=== PATIENT | female | born 1980 | race Hispanic/Latino ===

== ENCOUNTER 2017-10-24 07:17 | Emergency (ER) | payer MEDICAID ==
[2017-10-24 07:20] VITALS: O2SAT 100
[2017-10-24 07:52] VITALS: RESP 16; TEMP 98.1
--- NOTE | 2017-10-24 08:02 | C.PDOC ---
History Of Present Illness 36 year old female patient presents to the ER with c/o lower abdominal cramping associated with normal period bleeding. Patient's LMP 7/6 and ; patient is currently . Patient reports she was seen by OBGYN who performed a transvaginal US which showed a gestational sac, fibroid and ovarian cyst; location unknown. Patient notes she had cramps and spotting prior to today. Patient denies fever, chills, diarrhea, nausea, vomiting and back pain or urinary symptoms. Time Seen by Provider: 10/24/17 07:36 Chief Complaint (Nursing): Abdominal Pain History Per: Patient History/Exam Limitations: no limitations Onset/Duration Of Symptoms: Hrs Current Symptoms Are (Timing): Still Present Past Medical History Reviewed: Historical Data, Nursing Documentation, Vital Signs Vital Signs: Last Vital Signs Temp 98.1 F 10/24/17 07:51 Pulse 72 10/24/17 09:43 Resp 16 10/24/17 09:43 BP 104/62 10/24/17 09:43 Pulse Ox 100 10/25/17 10:04 Surgical History: Tonsillectomy - [facility] Procedures INJECT/INFUSE NEC (02/06/14) Family History: States: Diabetes - Social History Hx Tobacco Use: No Hx Alcohol Use: No Hx Substance Use: No - Immunization History Hx Tetanus Toxoid Vaccination: No Hx Influenza Vaccination: No Hx Pneumococcal Vaccination: No Review Of Systems Constitutional: Negative for: Fever, Chills Gastrointestinal: Positive for: Abdominal Pain (low). Negative for: Nausea, Vomiting, Diarrhea Genitourinary: Positive for: Vaginal Bleeding. Negative for: Dysuria, Frequency Musculoskeletal: Negative for: Back Pain Physical Exam - Physical Exam Appears: Non-toxic, No Acute Distress Skin: Warm, Dry Head: Atraumatic, Normacephalic Eye(s): bilateral: PERRL, EOMI Oral Mucosa: Moist Neck: Supple Chest: No Tenderness Cardiovascular: Rhythm Regular, No Murmur Respiratory: Normal Breath Sounds, No Rales, No Rhonchi, No Wheezing Gastrointestinal/Abdominal: Bowel Sounds, Soft, Tenderness (mild tenderness on lower abdomen), No Distention, No Guarding, No Rebound Back: No CVA Tenderness Extremity: No Pedal Edema, No Calf Tenderness, No Swelling Neurological/Psych: Oriented x3, Normal Speech, Normal Cognition Gait: Steady ED Course And Treatment - Laboratory Results Result Diagrams: 10/24/17 08:17 10/24/17 08:17 O2 Sat by Pulse Oximetry: 100 (RA) Pulse Ox Interpretation: Normal Medical Decision Making Medical Decision Making: Impression: preg low abdomen pain with vaginal bleeding Plans: -- blood work -- UA -- transvaginal US Reassess: Patient is resting comfortably, abdomen remains soft. us shows +iup with fhr. blood type A positive, no need for rhogam. pt to be given lab and us results and to f/u with station chief socrates, pelvic rest and threatened ab instructions Disposition Counseled Patient/Family Regarding: Studies Performed, Diagnosis, Need For Followup - Disposition Disposition: HOME/ ROUTINE Disposition Time: 10:36 Condition: GOOD Additional Instructions: Pelvic rest- nothing in vagina. Follow up with your station chief as soon as possible. Return to ER for worse abdominal pain, heavy vaginal bleeding or any other concerns. 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 - Scribe Statement The provider has reviewed the documentation as recorded by the Elisha Ibarra Do All medical record entries made by the Scribe were at my direction and personally dictated by me. I have reviewed the chart and agree that the record accurately reflects my personal performance of the history, physical exam, medical decision making, and the department course for this patient. I have also personally directed, reviewed, and agree with the discharge instructions and disposition.
[2017-10-24 08:21] LABS: URINE BACTERIA OCC (<OCC); URINE BILIRUBIN NEGATIVE (NEGATIVE); URINE BLOOD 3+ (NEGATIVE); URINE CLARITY Clear (Clear); URINE COLOR Yellow (YELLOW); URINE GLUCOSE (UA) NORMAL (Normal); URINE LEUKOCYTE ESTERASE NEG Leu/uL (Negative); URINE PROTEIN NEGATIVE (NEGATIVE); URINE UROBILINOGEN NORMAL mg/dL (0.2-1.0)
[2017-10-24 08:24] LABS: BASO # 0.1 K/uL (0.0-0.2); EOS # 0.1 K/uL (0.0-0.7); EOS % 2.3 % (0.0-4.0); HEMOGLOBIN 10.8 g/dL (11.0-16.0); LYMPH # 1.7 K/uL (1.0-4.3); LYMPH % 27.1 % (20.0-40.0); MEAN CORPUSCULAR HEMOGLOBIN 29.1 pg (27.0-31.0); MONO # 0.3 K/uL (0.0-0.8); MONO % 5.4 % (0.0-10.0); NEUT % 64.2 % (50.0-75.0); RBC 3.73 Mil/uL (3.80-5.20); RED CELL DISTRIBUTION WIDTH 14.6 % (11.5-14.5); WHITE BLOOD COUNT 6.2 K/uL (4.8-10.8)
[2017-10-24 08:38] LABS: ALB/GLOB RATIO 1.7 (1.0-2.1); ALBUMIN 3.9 g/dL (3.5-5.0); ALT/SGPT 30 U/L (9-52); AST/SGOT 14 U/L (14-36); BLOOD UREA NITROGEN 8 mg/dL (7-17); CALCIUM 8.9 mg/dl (8.6-10.4); GFR NON-AFRICAN AMERICAN > 60
[2017-10-24 09:44] VITALS: BP 104/62; PULSE 72
--- NOTE | 2017-10-24 10:28 | US ---
1st trimester ultrasound Indication: , abdominal pain and vaginal bleeding Comparison: None available Technique: Transabdominal pelvic ultrasound Findings: The uterus measures approximately 10.8 x 5.5 x 7.5 cm. Anteverted. Cervix length measures approximately 2.8 cm. There is a single intrauterine fetus present. 3 mm yolk sac. The gestational sac measures 2.5 cm and is compatible with a gestational age of 7 weeks 1 day. The crown-rump length measures 0.9 cm and is compatible with a gestational age of 6 weeks 6 days. There is heart motion which measured 150.2 BPM. The right ovary measures 5.1 x 3.6 x 4.9 cm. 4.7 x 3.0 x 4.4 cm complex appearing cyst with septations. The left ovary measures 4.2 x 1.5 x 3.1 cm. Blood flow was demonstrated to both ovaries. Impression: Live single intrauterine with estimated gestational age 7 weeks 1 day by gestational sac calculation and 6 weeks 6 days by crown-rump length calculation. heart rate 150.2 bpm. Advise an anomaly screen at 16-18 weeks gestational age. 4.7 x 3.0 x 4.4 cm complex appearing right ovarian cyst with septations.
== END 2017-10-24 10:47 | disposition home or self-care (01) ==
LOC: C.ER 07:17
DX: O20.0 Threatened abortion (principal); Z3A.01 Less than 8 weeks gestation of pregnancy

== ENCOUNTER 2017-11-12 19:23 | Emergency (ER) | payer MEDICAID ==
[2017-11-12] MEDS ORDERED: Sodium Chloride 0.9% 1,000 ML IV ONE (19:50)
[2017-11-12] MEDS ORDERED: Sodium Chloride 0.9% 1,000 ML ONE (20:05)
[2017-11-12 20:11] LABS: BASO % 0.3 % (0.0-2.0); EOS # 0.1 K/uL (0.0-0.7); EOS % 1.3 % (0.0-4.0); HEMOGLOBIN 12.4 g/dL (11.0-16.0); LYMPH # 1.4 K/uL (1.0-4.3); LYMPH % 14.9 % (20.0-40.0); MEAN CELL VOLUME 81.7 fL (81.0-99.0); MEAN CORPUSCULAR HEMOGLOBIN 29.9 pg (27.0-31.0); MEAN CORPUSCULAR HGB CONC 36.6 g/dL (33.0-37.0); MEAN PLATELET VOLUME 7.6 fL (7.2-11.7); MONO # 0.4 K/uL (0.0-0.8); MONO % 4.1 % (0.0-10.0); NEUT # 7.3 K/uL (1.8-7.0); NEUT % 79.4 % (50.0-75.0); NRBC % 0.1 % (0.0-2.0); RBC 4.13 Mil/uL (3.80-5.20); RED CELL DISTRIBUTION WIDTH 15.4 % (11.5-14.5); WHITE BLOOD COUNT 9.2 K/uL (4.8-10.8)
[2017-11-12 20:13] LABS: HCG,QUALITATIVE URINE POSITIVE (NEGATIVE)
[2017-11-12 20:18] LABS: SQUAMOUS EPITHIAL 2 /hpf (0-5); URINE BACTERIA OCC (<OCC); URINE BILIRUBIN NEGATIVE (NEGATIVE); URINE BLOOD NEGATIVE (NEGATIVE); URINE CLARITY Hazy (Clear); URINE COLOR Yellow (YELLOW); URINE GLUCOSE (UA) 1+ mg/dL (Normal); URINE LEUKOCYTE ESTERASE TRACE Leu/uL (Negative); URINE PROTEIN NEGATIVE (NEGATIVE); URINE UROBILINOGEN NORMAL mg/dL (0.2-1.0)
--- NOTE | 2017-11-12 20:36 | C.PDOC ---
"History Of Present Illness 36-year-old female, ( at 9 weeks), presents to the emergency department with complaints of vaginal bleeding. Pt states she had an episode of vaginal bleeding four days ago, which resolved. Patient notes she had an ultrasound at OBGYN office which showed +IUP. Bleeding started again this morning, prompting visit. Patient notes associated nausea and abdominal discomfort. She denies any vomiting, back pain, fever. No other complaints at this time. Time Seen by Provider: 11/12/17 19:37 Chief Complaint (Nursing): Female Genitourinary History Per: Patient History/Exam Limitations: no limitations Onset/Duration Of Symptoms: Days Current Symptoms Are (Timing): Still Present Past Medical History Reviewed: Historical Data, Nursing Documentation, Vital Signs Vital Signs: Last Vital Signs Temp 97.9 F 11/12/17 19:31 Pulse 84 11/12/17 19:31 Resp 18 11/12/17 19:31 BP 101/68 11/12/17 19:31 Pulse Ox 99 11/12/17 21:48 Surgical History: Tonsillectomy - [facility] Procedures INJECT/INFUSE NEC (02/06/14) Family History: States: Diabetes - Social History Hx Tobacco Use: No Hx Alcohol Use: No Hx Substance Use: No - Immunization History Hx Tetanus Toxoid Vaccination: No Hx Influenza Vaccination: No Hx Pneumococcal Vaccination: No Review Of Systems Except As Marked, All Systems Reviewed And Found Negative. Gastrointestinal: Positive for: Nausea Genitourinary: Positive for: Vaginal Bleeding Physical Exam - Physical Exam Appears: Non-toxic, No Acute Distress Skin: Normal Color, Warm, Dry, No Rash Head: Atraumatic, Normacephalic Eye(s): bilateral: Normal Inspection Nose: Normal Oral Mucosa: Moist Lips: Normal Appearing Neck: Normal ROM Chest: Symmetrical Cardiovascular: Rhythm Regular, No Murmur Respiratory: Normal Breath Sounds, No Decreased Breath Sounds, No Accessory Muscle Use Gastrointestinal/Abdominal: Soft, Tenderness (suprapubic), No Guarding, No Rebound Extremity: Normal ROM, No Deformity Neurological/Psych: Oriented x3, Normal Speech ED Course And Treatment - Laboratory Results Result Diagrams: 11/12/17 20:03 11/12/17 20:03 O2 Sat by Pulse Oximetry: 99 Pulse Ox Interpretation: Normal (RA) - CT Scan/US US Transvaginal Other Rad Studies (CT/US): Read By Radiologist, Radiology Report Reviewed CT/US Interpretation: [facility]. [facility]. Preliminary Radiology Report Call: [phone]. assistance Online chat: [email or web address] Name: DEWEY RDZ Age: 36Years F Date: 11/12/2017. Requesting Physician: Howard Elise : 1980. [facility] Procedure Ordered As Accession Number of. Images. US LTD ONE OR MORE. FETUSES. US OB . LIMITED. [id number]. J. 57. Provided Clinical History: vaginal bleeding in . EXAM: US Uterus, Limited. CLINICAL HISTORY: 36 years old, female; Signs and symptoms; Lmp or gestational age (in weeks): ;. Antepartum complications; Bleeding; ; Additional info: Vaginal bleeding in . TECHNIQUE: Real- time ultrasound of the maternal uterus (limited) with image documentation. COMPARISON: No relevant prior studies available. FINDINGS: There is a intrauterine gestational sac with a developing fetus present. The heart. rate is 168 bpm. A yolk sac is visible. CRL 2.8 cm 9 weeks 4 days gestational age. Gestational sac measures 4.8 cm 10 weeks 4 days gestational age. The uterus shows unremarkable myometrial echogenicity. The cervix measures 3.4 cm the cervical os is closed. The RIGHT ovary measures 3.6 cm x 3 cm x 4.5 cm. There is a septated cyst measuring 2.8 cm x 2.5 cm a 2.4 cm. The LEFT ovary measures 2.6 cm x 1.3 cm x 2 cm. The ultrasound gestational age is 10 weeks 1 day PAM 06/09/2018. The clinical gestational age is 9 weeks 4 days PAM 06/13/2018. IMPRESSION: 1. Single living intrauterine . 2. Gestational age 10 weeks 1 day PAM 06/09/2018. 3. Septated cyst RIGHT ovary. 4. Negative uterus and cervix. DEWEY RDZ | Preliminary Radiology Report. CONFIDENTIALITY STATEMENT. This report is intended only for the use of the referring physician, and only in accordance with law, If you received this in error, call [phone]. Page 2 of 2. 5. Negative LEFT ovary. Thank you for allowing us to participate in the care of your patient. Dictated and Authenticated by: Guy Cochran MD. 2017 9:44 PM Eastern Time ([place] & [place]) Medical Decision Making Medical Decision Making: Plan: * Bloodwork * Pepcid, Reglan, IVF * UA * Reassess and Disposition Disposition Counseled Patient/Family Regarding: Studies Performed, Diagnosis, Need For Followup - Disposition Referrals: Non [facility] Provider, [Primary Care Provider] - [facility] [Outside] Disposition: HOME/ ROUTINE Disposition Time: 22:06 Condition: STABLE Additional Instructions: follow up with your ob doctor within 2 days call to make an appointment take medications as prescribed return to ER if symptoms worsens or progress Instructions: Threatened Miscarriage (DC) Forms: [facility] (Montenegrin), General Discharge Instructions - Clinical Impression Clinical Impression: Threatened - Scribe Statement The provider has reviewed the documentation as recorded by the Scribe (Lakesha Obrien) Provider Attestation: All medical record entries made by the Scribe were at my direction and personally dictated by me. I have reviewed the chart and agree that the record accurately reflects my personal performance of the history, physical exam, medical decision making, and the department course for this patient. I have also personally directed, reviewed, and agree with the discharge instructions and disposition."
[2017-11-12 21:01] LABS: ALB/GLOB RATIO 1.5 (1.0-2.1); ALT/SGPT 22 U/L (9-52); AST/SGOT 14 U/L (14-36); BLOOD UREA NITROGEN 8 mg/dL (7-17); CALCIUM 8.8 mg/dl (8.6-10.4); GFR NON-AFRICAN AMERICAN > 60
[2017-11-12 21:21] LABS: LIPASE 67 U/L (23-300)
[2017-11-12 22:22] VITALS: BP 95/61; PULSE 80; RESP 16; TEMP 98.8; O2SAT 100
--- NOTE | 2017-11-13 11:23 | US ---
Date of service: 11/12/17 OB , limited Indication: Vaginal bleeding in Comparison: 1st trimester ultrasound performed 10/24/17 Technique: Transabdominal pelvic ultrasound Findings: The uterus measures approximately 8.8 x 9.1 x 8.8 cm. Anteverted. Cervix length measures approximately 3.5 cm. There is a single intrauterine fetus present. The gestational sac measures 4.8 cm and is compatible with a gestational age of 10 weeks 4 days. 3 mm yolk sac. The crown-rump length measures 2.8 cm and is compatible with a gestational age of 9 weeks 4 days. There is heart motion which measured 168.4 BPM. The right ovary measures 3.7 x 3.1 x 4.5 cm. 2.8 x 2.5 x 2.4 cm septated right ovarian cyst. The left ovary measures 2.7 x 1.3 x 2.1 cm. Blood flow was demonstrated to both ovaries. Impression: Live single intrauterine with estimated gestational age 10 weeks 4 days by gestational sac calculation and 9 weeks 4 days by crown-rump length calculation. heart rate 168.4 bpm. Advise an anomaly screen at 16-18 weeks gestational age Preliminary impression was provided by [facility].
== END 2017-11-12 22:22 | disposition home or self-care (01) ==
LOC: C.ER 19:23 → SUPCPDRO 19:23 → C.ER 22:22
DX: O20.0 Threatened abortion (principal); Z3A.10 10 weeks gestation of pregnancy
CPT/HCPCS: 76815; 80053; 81001; 83690; 84702; 84703; 85025; 96361; 96374; 96375; 99284; J2765; J7030